=== PATIENT | male | born 1935 | race Caucasian/White ===

== ENCOUNTER → 2018-01-01 | Outpatient (CLI) | payer MEDICARE | END | disposition home or self-care (01) | LOC: PCVCCLINIC 11:02 | PROVIDERS: ATTEND Internal Medicine | DX: I48.91 Unspecified atrial fibrillation (principal); I10 Essential (primary) hypertension; E78.5 Hyperlipidemia, unspecified; Z86.79 Personal history of other diseases of the circulatory system; Z87.891 Personal history of nicotine dependence | CPT/HCPCS: 93005; G0463 ==

== ENCOUNTER → 2018-01-04 | Outpatient (CLI) | payer MEDICARE ==
[~2018-01-04] MED LIST: REGADENOSON 0.4 MG/5 ML DISP.SYRIN. IV ONE
--- NOTE | 2018-01-04 12:11 | PCVCIMAG ---
APPROVED REPORT Imaging Protocol: Rest Tc-99m/Stress Tc-99m 1 day Study performed: 01/04/2018 08:42:33 Indication: Atrial Fibrillation(Eval for flecainide therapy) Patient Location: Out-Patient Stress Nurse: Jody Patel RN AL Tech:MAYE Gage Ht: 6 ft 1 in Wt: 180 lbs BSA: 2.06 m2 HR: 69 bpm BP: 168/84 mmHg BMI: 23.7 Medical History Medications: Tikosyn, Pradaxa, Lisinopril, Tamsulosin, Lovastatin, CoQ10 Allergies: Statins, Tylenol Cardiac Risk Factors: Age, HTN, Hyperlipidemia, Tobacco History (Former) Pretest Chest Pain Characteristics: No chest pain Exercise History: Physically active Resting Data Rest SPECT myocardial perfusion imaging was performed in supine position 45 minutes following the intravenous injection of 11.7 mCi of Tc-99m Sestamibi. Time of rest injection: 809 Date: 01/04/2018 Administration Route: IV Administration Site: Right Arm Pharmacologic Stress Pharmacologic stress test was performed by injecting Regadenoson 0.4 mg IV push over 10-15 seconds immediately followed by the intravenous injection of 31.5 mCi of Tc-99m Sestamibi. Time of stress injection: 909 Date: 01/04/2018 Administration Route: IV Administration Site: Right Arm Gated Stress SPECT was performed 45 minutes after stress injection. The images were gated to evaluate regional wall motion and calculate left ventricular ejection fraction. Stress Test Details Stress Test: Pharmacologic stress was paired with low level exercise. Reason for pharmacologic stress test: Rate controlling medications. HRMax Heart Rate (APMHR): 140 bpm Resting HR: 69 bpmTarget HR (85% APMHR): 119 bpm Max HR Achieved: 118 bpm % of APMHR: 84 Recovery HR: 75 bpm BP Resting BP: 168/84 mmHg Recovery BP: 168/79 mmHg ECG Resting ECG: Sinus Rhythm Stress ECG: Sinus Tachycardia Arrhythmia: PVCs Recovery ECG: Sinus Rhythm Clinical Reason for Termination: Completed protocol Stress Symptoms: None Exercise duration: 4 min 00 sec Exercise capacity: 1.6 METs No complications. Stress ECG Conclusion 1. Adequate response to intravenous Lexiscan 2. Inadequate heart rate for ECG diagnosis Study Data Post stress, the left ventricular ejection was 72%.. SSS: 0 SRS: 8 SDS: 0 TID = 1.03. Perfusion There is a large area of severely reduced uptake in the entire segment of the inferior wall which is seen on the stress images as well as the resting images. This area thickens and moves normally and is most consistent with attenuation artifact. Wall Motion Normal left ventricular wall motion. Nuclear Conclusion ECG Findings: non-diagnostic Clinical Findings: negative for ischemia Nuclear Findings: negative for ischemia Exercise Capacity: not assessed Left Ventricular Function: normal 1. Low risk study Interpreted by: Arelis Alonso MD Electronically Approved: 01/04/2018 12:10:46 <Conclusion> 1. Adequate response to intravenous Lexiscan 2. Inadequate heart rate for ECG diagnosis
== END | disposition home or self-care (01) ==
LOC: PCVCIMAG 07:41
PROVIDERS: ATTEND Internal Medicine
DX: I48.91 Unspecified atrial fibrillation (principal); E78.5 Hyperlipidemia, unspecified; Z87.891 Personal history of nicotine dependence
CPT/HCPCS: 78452; 93017; A9500; J2785

== ENCOUNTER → 2018-01-09 | Outpatient (CLI) | payer MEDICARE ==
[~2018-01-09] MED LIST changes: +LIDOCAINE 1%/EPI 1:100,000 20 ML VIAL. ONE; -REGADENOSON 0.4 MG/5 ML DISP.SYRIN. IV ONE
--- NOTE | 2018-01-09 16:23 | PCVCINTER ---
APPROVED REPORT Patient Location: Out-Patient Room #: 1 Stress Nurse: Procedure: Insertion of an implantable loop recorder Indications: 82-year-old male patient with paroxysmal atrial fibrillation Device: [employer] radical model DM 3500 serial number [id number] Brief description of procedure: After informed consent was obtained the patient was brought to the cardiac catheterization prep and hold Sweet. The chest was prepped and draped in usual sterile manner. Utilizing 1% lidocaine with epinephrine the skin was instilled and a wheal was raised. Continue local anesthetic instillation was performed along the proposed track of the loop recorder without complications. Utilizing a blade a small incision was made and both sharp and blunt dissection was utilized to open a subcutaneous pocket. He denies any insertion tool device was then deployed subcutaneously without difficulty. Did subcutaneous tissue was then closed with 2 simple interrupted 3-0 Vicryl sutures. Skin was closed with a running subcuticular followed by Steri-Strips 4 x 4 OpSite. Patient tolerated procedure well there is no significant complications. No blood loss. Conclusion
== END | disposition home or self-care (01) ==
LOC: PCVCINTER 11:03
PROVIDERS: ATTEND Internal Medicine
DX: I48.0 Paroxysmal atrial fibrillation (principal); Z98.890 Other specified postprocedural states; Z87.891 Personal history of nicotine dependence; Z72.89 Other problems related to lifestyle; Z88.6 Allergy status to analgesic agent; Z88.8 Allergy status to other drugs, medicaments and biological substances; Z79.899 Other long term (current) drug therapy
CPT/HCPCS: 33282; C1764; J3490

== ENCOUNTER → 2018-01-30 | Outpatient (CLI) | payer MEDICARE | END | disposition home or self-care (01) | LOC: PCVCCLINIC 11:07 | PROVIDERS: ATTEND Internal Medicine | DX: I48.0 Paroxysmal atrial fibrillation (principal); I10 Essential (primary) hypertension; E78.5 Hyperlipidemia, unspecified; Z79.899 Other long term (current) drug therapy; Z87.891 Personal history of nicotine dependence | CPT/HCPCS: G0463 ==

== ENCOUNTER → 2018-07-10 | Outpatient (CLI) | payer MEDICARE | END | disposition home or self-care (01) | LOC: PCVCCLINIC 12:09 | PROVIDERS: ATTEND Internal Medicine | DX: I48.0 Paroxysmal atrial fibrillation (principal); I10 Essential (primary) hypertension; E78.5 Hyperlipidemia, unspecified; Z87.891 Personal history of nicotine dependence; Z88.8 Allergy status to other drugs, medicaments and biological substances | CPT/HCPCS: 36415; 80061; 93005; G0463 ==

== ENCOUNTER 2018-09-05 06:51 | Outpatient (CLI) | payer MEDICARE ==
[~2018-09-05] VITALS: Ht 185.4 cm; Wt 81.6 kg
[2018-09-05] VITALS (13 sets, daily range): BP systolic 139–182; BP diastolic 63–94
[2018-09-05] MEDS ORDERED: ASPIRIN CHEWABLE 81 MG TABLET. PO ONE (07:15)
[2018-09-05] MEDS ORDERED: UBID30CA9 PO (07:17)
[2018-09-05] MEDS ORDERED: DABI150C PO (07:17)
[2018-09-05] MEDS ORDERED: FLEC100T PO ×2 (07:17→07:25)
[2018-09-05] MEDS ORDERED: GLUC1TAB PO (07:17)
[2018-09-05] MEDS ORDERED: TAMS0.4C97 PO ×2 (07:17→07:31)
[2018-09-05] MEDS ORDERED: OMEG1CAP6 PO (07:17)
[2018-09-05] MEDS ORDERED: CHOL10003 PO (07:17)
[2018-09-05] MEDS ORDERED: LOVA20TA2 PO (07:17)
[2018-09-05] MEDS ORDERED: LISI10TA2 PO (07:17)
[2018-09-05] MEDS ORDERED: VITAMIN PO (07:31)
[2018-09-05] MEDS ORDERED: GLUC15006 PO (07:31)
[2018-09-05] MEDS ORDERED: IODIXANOL 320 MG/ML 100 ML VIAL. ONE (07:35)
[2018-09-05] MEDS ORDERED: LIDOCAINE 1% Multi-Dose 20 ML VIAL. ONE (07:35)
[2018-09-05] MEDS ORDERED: HEPARIN for ARTERIAL LINE 1,500 ML ONE (07:36)
[2018-09-05 07:52] LABS: BASO % 0 % (0-3); EOS # 0.1 x10^3/uL (0.0-0.7); EOS % 2 % (0-3); HEMATOCRIT 47.5 % (39.0-53.0); LYMPH # 1.3 x10^3/uL (1.0-4.8); LYMPH % 26 % (24-48); MEAN CORPUSCULAR HEMOGLOBIN 31 pg (25-35); MEAN CORPUSCULAR HGB CONC 34 g/dL (31-37); MEAN CORPUSCULAR VOLUME 91 fL (79-100); MONO # 0.4 x10^3/uL (0.0-1.1); MONO % 7 % (0-9); NEUT # 3.4 x10^3uL (1.8-7.7); NEUT % 65 % (31-73); PLATELET COUNT 158 x10^3/uL (140-400); RED BLOOD COUNT 5.21 x10^6/uL (4.30-5.70); RED CELL DISTRIBUTION WIDTH 13.2 % (11.5-14.5); WHITE BLOOD COUNT 5.2 x10^3/uL (4.0-11.0)
[2018-09-05] MEDS ORDERED: ASPIRIN CHEWABLE 81 MG TABLET. ONE (07:59)
[2018-09-05] MEDS ORDERED: MIDAZOLAM HCL/PF 2 MG/2 ML VIAL. ONE (08:00)
[2018-09-05] MEDS ORDERED: fentaNYL PF VIAL 100 MCG/2 ML VIAL ONE (08:00)
[2018-09-05 08:02] LABS: CALCIUM 9.2 mg/dL (8.5-10.1); CREATININE 0.8 mg/dL (0.7-1.3); POTASSIUM 4.2 mmol/L (3.5-5.1)
[2018-09-05 08:03] LABS: PROTHROMBIN TIME PATIENT 13.9 SEC (11.7-14.0)
[2018-09-05] MEDS ORDERED: MIDAZOLAM HCL/PF 2 MG/2 ML VIAL. IV ONE (08:30)
[2018-09-05] MEDS ORDERED: fentaNYL PF VIAL 100 MCG/2 ML VIAL IV ONE (08:30)
[2018-09-05] MEDS ORDERED: IODIXANOL 320 MG/ML 100 ML VIAL. IART ONE (08:30)
[2018-09-05] MEDS ORDERED: LIDOCAINE 1% Multi-Dose 20 ML VIAL. INJ ONE (08:30)
[2018-09-05] MEDS ORDERED: NITROGLYCERIN SUBLINGUAL 0.4 MG BOTTLE OF 25. SL PRN (09:45)
[2018-09-05] MEDS ORDERED: IV NORMAL SALINE 1000ML BAG 1,000 ML IV SCH (09:45)
[2018-09-05] MEDS ORDERED: ACETAMINOPHEN 325 MG TABLET. PO PRN (09:45)
--- NOTE | 2018-09-05 14:06 | NUR ---
Discharge Note: DORIS QUINONES [facility] Discharge instructions and discharge home medications reviewed with Patient and a copy given. All questions have been answered and understanding verbalized. The following instructions and handouts were given: groin site care and moderate sedation Discontinued lines and drains: Peripheral IV intact. Patient discharged to Home or Self Care withSpousevia Wheelchair
--- NOTE | 2018-09-11 13:27 | CARD ---
MR#: [id number] Date of Study: 09/05/2018 Ordering Physician: ISABELLE ALONSO, Referring Physician: ISABELLE ALONSO Tech: RT Wade (R) APPROVED REPORT Technologist: Lucila Woodson RT (R) Nurse: Debbie Solano RN Procedure(s) performed: Fluoro time: 2.5min Dose: 36.3Gycm2 Left heart catheterization, selective left and right coronary angiography, measurement of left ventri cular end-diastolic pressures Contrast:66cc Moderate sedation 20min HISTORY The patient is a 82-year-old year-old male with a history of : coronary artery disease, hypertension, dyslipidemia. INDICATION The indication(s) include : positive stress test, palpitations. CS Clinical Frailty Scale [facility] Clinical Frailty Scale: Managing Well Heart Failure Heart Failure: No CASE TECHNIQUE The patient was brought electively into the cardiac catheterization lab. A timeout was performed conf irming the patient's name, date of , procedure, and site of procedure. All necessary parties wer e wearing the appropriate personal protective equipment and radiation monitoring devices. After expla ining the risks and benefits of the procedure, informed consent was obtained.(See nursing notes for m edications administered). The right groin was sterilely prepped and draped. The right femoral groin w as infiltrated with 1% Lidocaine subcutaneous anesthesia. During this case, Fluoroscopy and Iso-osmol ar contrast were used for imaging. A 5 [place] sheath was inserted into the right femoral artery witho ut difficulty. Coronary angiography was performed using coronary diagnostic catheters. The left coron claribel system was accessed and visualized with a Diagnostic catheter. The right coronary system was acce ssed and visualized with a Diagnostic catheter. Left ventricular/Aortic Valve gradient assessed on pu llback. Hemostasis was obtained with manual pressure following sheath removal without any complicatio ns. The patient tolerated the procedure well and there were no complications associated with the proc edure. Coronary Angiography The patient's coronary anatomy is left dominant. The left main coronary artery is a large size vessel with intimal irregularities. The left anterior descending artery is a medium size vessel courses in the anterior interventricular sulcus giving rise to septal and diagonal branches. There is still irregularities of less than 30% no mono in the proximal portion. There is an segment in the mid third of the vessel that is a long tubula r narrowing that appears to be less than 50%.. The first diagonal branch is a small size vessel free of significant obstructive lesions. The circumflex artery is a large size vessel dominant vessel which gives rise to an early small ratna nal branch. The second marginal branch is also small as it courses along the lateral aspect of the ve ntricle. The circumflex proper then continues on posteriorly to the proximal artery gives rise to a b ifurcating those tear circulation. No significant high-grade lesions are noted although there is some proximal narrowing of less than 20% identified. The first obtuse marginal branch is a small size ves luis free of high-grade stenosis. The left posterior descending artery is a bifurcating small size ves luis we have high-grade disease as it courses posteriorly straddling the posterior interventricular connors lcus. The right coronary artery is a diminutive size vessel nondominant free of high-grade disease. Left Ventriculography There was no gradient across the aortic valve upon pullback. Left ventricular end-diastolic pressures were normal on measurement prior to pullback Conclusion 1. Mild coronary artery disease 2. Normal hemodynamics Recommendations Cardiac Risk Reduction Program Medical Therapy Signed by : Isabelle Alonso, Electronically Approved : 09/11/2018 13:26:36
== END 2018-09-05 14:15 | disposition home or self-care (01) ==
LOC: CCL 06:51
PROVIDERS: ATTEND Internal Medicine
DX: I25.10 Atherosclerotic heart disease of native coronary artery without angina pectoris (principal); Z79.01 Long term (current) use of anticoagulants
CPT/HCPCS: 36415; 80048; 85025; 85610; 93458; 99152; C1769; C1892; J1644; J2250; Q9967

== ENCOUNTER → 2018-12-04 | Outpatient (CLI) | payer MEDICARE ==
[2018-09-05 13:35] VITALS: BP 158/83
[~2018-12-04] MED LIST changes: +CHOL10003 PO; +DABI150C PO; +FLEC100T PO; +GLUC15006 PO; +GLUC1TAB PO; -LIDOCAINE 1%/EPI 1:100,000 20 ML VIAL. ONE; +LISI10TA2 PO; +LOVA20TA2 PO; +OMEG1CAP6 PO; +TAMS0.4C97 PO; +UBID30CA9 PO; +VITAMIN PO
== END | disposition home or self-care (01) ==
LOC: PCVCCLINIC 14:54
PROVIDERS: ATTEND Internal Medicine
DX: I48.0 Paroxysmal atrial fibrillation (principal); I10 Essential (primary) hypertension; E78.5 Hyperlipidemia, unspecified; Z88.8 Allergy status to other drugs, medicaments and biological substances; Z79.899 Other long term (current) drug therapy; Z87.891 Personal history of nicotine dependence; Z72.89 Other problems related to lifestyle
CPT/HCPCS: G0463